=== PATIENT | female | born 1985 | race African-American/Black ===

== ENCOUNTER 2020-11-08 13:09 | Emergency (ER) | payer OTHER ==
[~2020-11-08] VITALS: Ht 162.6 cm; Wt 72.6 kg
[2020-11-08] MEDS ORDERED: BIRTH CONTROL (13:22)
[2020-11-08 13:33] LABS: ABSOLUTE BASOPHILS 0.1 thou/uL (0.0-0.2); ABSOLUTE EOSINOPHILS 0.1 thou/uL (0.0-0.7); ABSOLUTE LYMPHOCYTES 1.8 thou/uL (0.8-5.3); ABSOLUTE MONOCYTES 0.6 thou/uL (0.0-1.2); ABSOLUTE NEUTROPHILS 1.8 thou/uL (1.6-8.1); BASOPHILS 1.2 %; EOSINOPHILS 1.4 %; HEMATOCRIT 37.5 % (37.0-47.0); HEMOGLOBIN 12.6 gm/dL (12.0-15.0); LYMPHOCYTES 42.4 %; MCH 30.9 pg (26.0-34.0); MCHC 33.5 g/dL (28.0-37.0); MCV 92.2 fL (80.0-100.0); MPV 8.4 fl. (7.2-11.1); NUCLEATED RBCS 0 /100WBC; PLATELET COUNT* 234 thou/uL (150-400); RBC 4.07 mil/uL (4.20-5.00); RDW-CV 12.3 % (10.5-14.5); WBC 4.3 thou/uL (4.0-11.0)
[2020-11-08 13:41] LABS: ANION GAP 10 mmol/L (7-16); BUN 12 mg/dL (7-18); CALCIUM 8.9 mg/dL (8.5-10.1); CHLORIDE 104 mmol/L (98-107); CO2 25 mmol/L (21-32); CREATININE 0.8 mg/dL (0.6-1.3); GLUCOSE 109 mg/dL (70-99); POTASSIUM 3.6 mmol/L (3.5-5.1); SODIUM 139 mmol/L (136-145)
[2020-11-08 13:55] LABS: ALBUMIN 3.4 g/dL (3.4-5.0); ALKALINE PHOSPHATASE 47 U/L (46-116); CK-MB MASS < 0.5 ng/mL (<0.5-3.6); LIPASE 79 U/L (73-393); MAGNESIUM 2.1 mg/dL (1.8-2.4); NT-PRO BRAIN NAT PEPTIDE 50 pg/mL (<300); SGOT 13 U/L (15-37); SGPT 20 U/L (30-65); TOTAL BILIRUBIN 0.4 mg/dL (<0.1-1.0); TOTAL PROTEIN 7.6 g/dL (6.4-8.2)
[2020-11-08 14:24] VITALS: BP 137/83
--- NOTE | 2020-11-08 15:24 | EKG ---
[place] [address] ELECTROCARDIOGRAM REPORT Name: BRANDON BROWER Room: [facility] ([place], [place])#: [id number] Admission: 11/08/20 Attend Phys: Discharge: 11/08/20 Date of : 87 Date of Service: 11/08/20 1318 Report #: [id number] THIS REPORT FOR: //name// [facility] ED Test Date: 2020-11-08 Test Time: 13:18:02 Pat Name: BRANDON BROWER Department: Room: Gender: [employer]ist: DAVIDA : 1985 Requested By: Paramjit Ricketts Order Number: [id number] MD: Riky Pulido Measurements Intervals [place] Rate: 81 P: 43 ND: 153 QRS: 38 QRSD: 86 T: 20 QT: 373 QTc: 433 Interpretive Statements Sinus rhythm No previous ECG available for comparison Electronically Signed On 11-08-2020 15:23:52 CDT by Riky Pulido [email or web address] <ELECTRONICALLY SIGNED> By: Riky Pulido MD, [facility] 11/08/20 1523 1318 17 Riky Pulido MD, FACC /EPI
== END 2020-11-08 14:26 | disposition home or self-care (01) ==
LOC: M.ERS 13:09
PROVIDERS: Family Medicine
DX: R07.89 Other chest pain (principal)